=== PATIENT | male | born 1965 | race Caucasian/White ===

== ENCOUNTER 2023-12-01 10:34 | Emergency (ER) | payer MEDICARE, MEDICAID ==
[~2023-12-01] VITALS: Ht 167.6 cm; Wt 75.0 kg
[2023-12-01 10:37] VITALS: BP 177/88; PULSE 110; RESP 18; O2SAT 99
[2023-12-01] MEDS ORDERED: DOL10T PO ×2 (12:56→13:10)
[2023-12-01 13:17] VITALS: TEMP 97.3
== END 2023-12-01 13:18 | disposition home or self-care (01) ==
LOC: ER 10:35
DX: F11.90 Opioid use, unspecified, uncomplicated (principal); M54.9 Dorsalgia, unspecified; G89.29 Other chronic pain; Z76.0 Encounter for issue of repeat prescription
CPT/HCPCS: 99281